=== PATIENT | female | born 1965 | race Two or more races ===

== ENCOUNTER 2017-01-21 11:12 | Observation (INO) | payer BC ==
[~2017-01-21] VITALS: Ht 160 cm; Wt 107.3 kg
--- NOTE | ~2017-01-21 | HP ---
PATIENT'S NAME: PARDEEP MATIAS [facility] AGE: 51 Y [address] ROOM: [address] [address] LOCATION: GPCU ADMIT DATE: 01/21/2017 History & Physical DISCHARGE DATE: FAMILY PHYSICIAN: MICAELA ROSE MD ATTENDING PHYSICIAN: MICAELA ROSE DATE OF SERVICE: 01/21/2017 CHIEF COMPLAINT: Cholelithiasis and abdominal pain. HISTORY OF PRESENT ILLNESS: The patient is a 51-year-old female, who has been in her usual state of good health when she woke up this morning, then late this morning she had an abrupt onset of quite intense severe midepigastric pain. It started in the upper midepigastrium to lower chest area. It seemed to radiate up under her left breast area, but also into her right back. The pain was quite intense and constant in nature. It was not associated with any heart palpitations. No shortness of breath or cough. No nausea or vomiting. She came into the emergency room to be evaluated. Here, she was found to be afebrile. Her white count was normal. Her CK-MB was slightly elevated at 6.8. She also had a slight elevation of her AST at 61. Amylase and lipase were normal. An ultrasound revealed some stones in the gallbladder, but no signs of cholecystitis and no duct dilatation. The patient initially seemed to be quite uncomfortable and required several doses of IV narcotics. Right now, she is feeling much better and feels like the pain is almost gone. Her bowels have been working normally. She did have an episode similar to this in August. At that time, she responded to a GI cocktail and had not had any troubles until today. The GI cocktail did not help today. PAST MEDICAL HISTORY: Really unremarkable. MEDICATIONS: She takes no medications on a regular basis. ALLERGIES: HER ONLY ALLERGY IS CODEINE, WHICH CAUSED A RASH. PAST SURGICAL HISTORY: Tonsillectomy, 3 C-sections, and I did remove her appendix during one of her C- sections. SOCIAL HISTORY: The patient is . She denies tobacco or alcohol abuse. No illegal drug PATIENT'S NAME: PARDEEP MATIAS [facility] AGE: 51 Y [address] ROOM: [address] [address] [facility] ADMIT DATE: 01/21/2017 History & Physical DISCHARGE DATE: FAMILY PHYSICIAN: MICAELA ROSE MD ATTENDING PHYSICIAN: MICAELA ROSE use. REVIEW OF SYSTEMS: Otherwise unremarkable other than the pain. FAMILY HISTORY: Noncontributory. PHYSICAL EXAMINATION: GENERAL: The patient is a healthy, well-nourished, 51-year-old female, she is alert and oriented, she does not appear to be in any discomfort or obvious distress. VITAL SIGNS: Temperature 97.7, pulse 74, respirations 16, blood pressure 180/82, and saturations are 97%. Weight is 105.4 kg. HEENT: Normocephalic and atraumatic. Pupils are equal. There is no scleral icterus. External ears, nose, and eyelids are unremarkable. NECK: There is no masses or adenopathy. Trachea is midline. Breathing is nonlabored. LUNGS: Clear to auscultation without rales, rhonchi, or wheezing. HEART: Regular rate and rhythm. ABDOMEN: Soft. It is not distended. I really did not appreciate any tenderness on my exam. She has normoactive bowel sounds. EXTREMITIES: No deformities. She moves all 4 extremities well. There is no cyanosis, clubbing, or edema. ASSESSMENT: This is a 51-year-old female with cholelithiasis, but no evidence of cholecystitis at this point. Her attack of pain may be gallbladder in origin, but it is difficult to know for sure. We discussed the possibility of cholecystectomy versus ongoing observation, I think either is quite reasonable. I suspect she will need her gallbladder out at some point, but I do not see anything urgent right now. PLAN: The patient is being admitted by Dr. Rose for observation. If she likes to go ahead with cholecystectomy, we can certainly take care of this, otherwise she could continue with observation and see how things go. MD FRANSISCO JANE/silas PATIENT'S NAME: JOSHUA MATIASMARIBEL Hardin [facility] AGE: 51 Y [address] ROOM: [address] [address] LOCATION: [facility] ADMIT DATE: 01/21/2017 History & Physical DISCHARGE DATE: FAMILY PHYSICIAN: MICAELA ROSE MD ATTENDING PHYSICIAN: MICAELA ROSE /[id number] CC: Micaela Rose MD D: [id number] T: [id number] HISTORY & PHYSICAL
--- NOTE | ~2017-01-21 | DS ---
PATIENT'S NAME: PARDEEP MATIAS [facility] AGE: 51 Y [address] ROOM: [address] [place], [place] [address] LOCATION: GPCU ADMIT DATE: 01/21/2017 Discharge Summary DISCHARGE DATE: 01/24/2017 FAMILY PHYSICIAN: Micaela Rose MD ATTENDING PHYSICIAN: Micaela Rose FINAL DIAGNOSES: 1. Acute epigastric pain secondary to biliary colic secondary to gallstones. 2. Abdominal pain, epigastric, secondary possibly to duodenal ulcer, confirmed by upper GI endoscopy. 3. Status post laparoscopic cholecystectomy, Dr. Whitney, 01/23/2017, see op note. 4. Status post upper GI endoscopy per Dr. Carrillo, 01/22/2017, see op note. 5. Exogenous obesity. HOSPITAL COURSE: This 51-year-old female was admitted to the hospital with acute epigastric pain. She was seen in consultation at my request by Dr. Shashi Whitney, surgeon, and Dr. Carrillo, applications engineering manager. Please see their notes and dictation in the chart. The patient's pain was felt to be from biliary colic, but to make sure there is no other cause of her pain, she underwent an upper GI endoscopy that showed a duodenal ulcer. We let the gas defervesce out of her bowels, and the day prior to dismissal, she was taken to the operating room with Dr. Shashi Whitney and underwent an uncomplicated laparoscopic cholecystectomy. She is in good condition, tolerating diet well, ambulating without symptoms, afebrile, and is dismissed to home on 01/24/2017. She goes home on the med list shown, diet as tolerated. She has been given instructions to see me back in a week and Dr. Whitney back as he desires per chart. If she has fever, chills, nausea, vomiting, or blood in the stool, she is to be seen back earlier. She understands. MICAELA ROSE MD [employer]/jennil /[id number] d: 01/24/171952 t: 01/31/17 1033, DISCHARGE SUMMARY
--- NOTE | ~2017-01-21 | HP ---
PATIENT'S NAME: PARDEEP MATIAS [facility] AGE: 51 Y [address] ROOM: [id number] [place], [place] [address] LOCATION: GPCU ADMIT DATE: 01/21/2017 History & Physical DISCHARGE DATE: FAMILY PHYSICIAN: MICAELA STEVENS MD ATTENDING PHYSICIAN: MICAELA STEVENS DATE OF SERVICE: CHIEF COMPLAINT: Epigastric pain. HISTORY OF PRESENT ILLNESS: The patient is a 51-year-old female from [place], [place], who presented to my office early in the afternoon on the day of admission complaining of an acute onset of severe epigastric pain. She had a couple spells like this in the past and ended up in the emergency room one other time. I sent her to [facility] Emergency Room, where she was seen by Dr. Aimee Cooper. Her CPK was up a little bit, which bothered her and taken to the hospital and also the fact that her epigastric pain required IV narcotics to calm it down. Her lab frankly looks normal; lab including CBC, chem panel, amylase, and lipase, specifically her troponin is negative. Her EKG did not show any acute changes. Her urine is clear also. However, her ultrasound of the gallbladder shows what appears to be sludge and small stones in the gallbladder without any other complicating feature. Her chest x-ray is normal. I had a long talk with her and her when I see them after admission at 5:40 p.m. on the day of admission. I really think she needs to stay overnight to control her pain and make sure she never relapse; I will put her on an IV PPI. I have obtained surgical consultation, and by the time I see the patient after admission, she has been seen by Dr. Sreedhar Whitney, general surgeon. Please see his notes on the chart. He has offered the patient and her opportunity for a cholecystectomy in the morning, laparoscopic, if they want to proceed. In order to clear the air, I have obtained an upper GI endoscopy request for tomorrow morning and will keep the patient n.p.o. for that. I think that will help us answer whether any other possibility is present, which could be causing her severe epigastric pain such as severe esophagitis or other complicating feature in the upper GI tract. The patient and her wished to proceed with that workup. In that light, we will leave her IV in control her pain and keep her n.p.o. after midnight. PATIENT'S NAME: PARDEEP MATIAS [facility] AGE: 51 Y [address] ROOM: [address] [address] [facility] ADMIT DATE: 01/21/2017 History & Physical DISCHARGE DATE: FAMILY PHYSICIAN: MICAELA STEVENS MD ATTENDING PHYSICIAN: MICAELA STEVENS MEDICINES: Per nurse's notes. Vitamins . ALLERGIES: SEE NURSE'S NOTES. OPERATIONS: See old records. SOCIAL HISTORY: Does not smoke cigarettes. FAMILY HISTORY: Negative for problems with bleeding disorder or general anesthesia. REVIEW OF SYSTEMS: HEENT: She has had no recent headache, sore throat, or earache. ENDOCRINE: She is not diabetic nor does she have thyroid disease. LUNGS: No history of asthma. HEART: No history of chest pain or palpitations or previous OH or hypertension. GI: No vomiting. Is nauseated. Has epigastric pain. No recent blood in the stool. No weight loss. No schuyler dysphagia. : No dysuria or frequency. No blood in the urine. EXTREMITIES: No joint swelling. No edema. NEUROLOGIC: She has never had a stroke, never had a seizure. SKIN: No recent rashes. MENTAL STATUS: No recent history of depression or anxiety. PHYSICAL EXAMINATION: GENERAL: Moderately obese female, in no apparent distress when I see her after IV pain medicine. She is oriented to person, place, and time, and I believe to be confident pre-narcotic. HEENT: Shows pupils react to light. TMs are not visualized. Posterior pharynx is clear. Mucous members are moist. NECK: Unremarkable. Thyroid is not enlarged. LUNGS: Clear without wheeze or rub. HEART: Shows no murmur, gallop, or rub. ABDOMEN: When I see her, she is not tender in the belly. There is no palpable mass. PELVIC AND RECTAL: Not done. EXTREMITIES: Pulses full throughout. NEUROLOGIC: Grossly intact without lateralizing signs. IMPRESSION: PATIENT'S NAME: PARDEEP MATIAS [facility] AGE: 51 Y [address] ROOM: [address] [place], [place] [address] [facility] AD[facility] DATE: 01/21/2017 History & Physical DISCHARGE DATE: FAMILY PHYSICIAN: MICAELA STEVENS MD ATTENDING PHYSICIAN: MICAELA STEVENS 1. Severe epigastric pain. 2. Ultrasound of the gallbladder showing small stones in the gallbladder/sludge with no complicating feature. 3. Exogenous obesity. PLAN: As above. MICAELA STEVENS MD CLAIMS AGENT RIGHT OF WAY/modl /[id number] D: [id number] T: [id number] HISTORY & PHYSICAL
--- NOTE | ~2017-01-21 | ER ---
PATIENT'S NAME: PARDEEP MATIAS [facility] AGE: 51 Y [address] ROOM: [address] [place] [id number] LOCATION: GPCU ADMIT DATE: 01/21/2017 ER/Outpatient Report DISCHARGE DATE: FAMILY PHYSICIAN: MICAELA ROSE MD ATTENDING PHYSICIAN: MICAELA ROSE Time of Arrival: 1112 hours. Time of Evaluation: 1125 hours. IDENTIFICATION: A 51-year-old female. CHIEF COMPLAINT: Abdominal pain. HISTORY OF PRESENT ILLNESS: Approximately 1 hour prior to arrival, the patient was at [facility] and developed severe epigastric abdominal discomfort. No radiation of the pain. She has no associated nausea or vomiting. No shortness of breath. No chest pain. No fever or chills. She had similar episode of pain she thought a few months ago and indeed she was here on August 30 with epigastric abdominal pain relieved with a GI cocktail. The patient has had no pain in between August 30 and today. She really only had crackers to eat this morning. She has had no constipation or diarrhea. Her last bowel movement was just prior to arrival. No blood in her stools. No dark, tarry, or black stools. No dysuria. She is no longer having periods. ALLERGIES: CODEINE, SHE SAYS IT CAUSES A RASH. CURRENT MEDICATIONS: Denies. MEDICAL PROBLEMS: Denies. PRIOR SURGERIES: section x3, tonsillectomy, and appendectomy. SOCIAL HISTORY: The patient is . Does not work outside the home. Lives here in [place]. Tobacco use, denies. Alcohol use, denies. Drug use, denies. REVIEW OF SYSTEMS: All systems reviewed and negative other than what is noted in the HPI. PATIENT'S NAME: PARDEEP MATIAS [facility] AGE: 51 Y [address] ROOM: [facility] [place], [place] [address] LOCATION: GPCU ADMIT DATE: 01/21/2017 ER/Outpatient Report DISCHARGE DATE: FAMILY PHYSICIAN: MICAELA ROSE MD ATTENDING PHYSICIAN: MICAELA ROSE FAMILY HISTORY: Father with premature coronary artery disease and stroke. PHYSICAL EXAMINATION: VITAL SIGNS: Height 5 feet and 3 inches, weight 105.4 kg, blood pressure 180/82, pulse 74, respirations 16, temperature 97.7, and saturations 97% on room air. GENERAL: A 51-year-old female, in obvious distress with 9/10 pain. HEENT: Head: Normocephalic and atraumatic. Ears: TMs translucent both ears. Eyes: Pupils equal and reactive to light and accommodation. Extraocular movements intact. Nose: Mucosa pink. No lesions. Mouth: No lesions. Pharynx benign. NECK: Supple. No lymphadenopathy. No nuchal rigidity. LUNGS: Clear to auscultation. Breath sounds are equal. No rhonchi, wheezes, or rales. HEART: Regular rate and rhythm. No murmur, rub, or gallop. ABDOMEN: Bowel sounds present. Soft. Nondistended. No hepatosplenomegaly. No palpable masses. Tender to palpation in the epigastric region. No rebound or guarding. No right upper quadrant tenderness. No CVA tenderness. No chest wall tenderness. EMERGENCY DEPARTMENT COURSE: An IV was initiated. GI cocktail was given. The patient did not initially want any other pain medication. EKG and labs were obtained. EKG done at 1148 hours, showed normal sinus rhythm at 72 beats per minute, no acute ST elevation or depression, and no change when compared to previous EKG dated August 30, 2016. She has poor anterior R-wave progression and Q-wave in lead III, again present on prior EKG. Repeat EKG at 1256 hours, showed normal sinus rhythm at 69 beats per minute, no acute ST elevation or depression, poor anterior R-wave progression and a Q-wave in lead III, again unchanged from previous EKGs. Sodium 141, potassium 4.1, chloride 105, CO2 of 26, BUN 14, creatinine 0.9, and blood sugar 114. Liver enzymes: AST 61, which is slightly elevated when compared to previous AST in August; ALT 45, bilirubin normal at 0.5. Amylase 60. Lipase 199. Hemoglobin 15.3, hematocrit 46.3, platelets 237, and white count 6.6 with a normal differential. Urine hCG negative. UA; specific gravity 1.015, pH 6, leukocytes trace, nitrites negative, trace of protein, rare white cells, 0 to 2 red cells, rare epithelial cells. CPK 171, CK-MB elevated at 6.8, and troponin I less than 0.040. A 90-minute cardiac enzymes: CPK 163, CK-MB 6.1, and troponin I less than 0.040. Chest x-ray, one view, no acute process, pending Radiology over- read. Right upper quadrant ultrasound shows cholelithiasis without ductal dilatation, the gallbladder shows a number of small gallstones that are gravel like in size, no gallbladder wall thickening, 5 mm common bile duct per Radiology. The patient was continued to have 9/10 pain despite the GI PATIENT'S NAME: PARDEEP MATIAS [facility] AGE: 51 Y [address] ROOM: [address] [address] LOCATION: GPCU ADMIT DATE: 01/21/2017 ER/Outpatient Report DISCHARGE DATE: FAMILY PHYSICIAN: MICAELA ROSE MD ATTENDING PHYSICIAN: MICAELA ROSE cocktail, so she was given fentanyl a total of 50 mcg and Zofran 4 mg again with no improvement. She continued to have significant pain. She was given Dilaudid 0.5 mg IV with complete resolution of her pain. Her blood pressure also improved from 180/82 to 120s systolic and she was much more comfortable. IMPRESSION AND PLAN: 1. Epigastric abdominal pain. The patient was given GI cocktail, fentanyl, Dilaudid, and 40 mg of IV Protonix. Pain improved to 0. Differential diagnosis includes cholelithiasis, peptic ulcer disease, cardiac etiology, esophageal spasm. 2. Elevated CPK-MB. No acute findings noted on EKG. Second set of enzymes with CK-MB is still slightly elevated, but improved from the first, troponin remains normal. The patient will be admitted by Dr. Rose and have serial EKG and enzymes with any necessary cardiology consultation. 3. Cholelithiasis. Dr. Rose will admit. Dr. Whitney provided consultation and evaluated the patient in the emergency room. All of the differential diagnosis was explained to the patient and her in detail and all questions have been answered, and again the patient was taken to the floor in stable and improved condition. KARYN PINTO MD CAR/modl /[id number] d: 01/21/17 2324 t: 01/26/17 0653, OUTPATIENT REPORT
--- NOTE | ~2017-01-21 | OR ---
PATIENT'S NAME: PARDEEP MATIAS [facility] AGE: 51 Y [address] ROOM: [address] [address] LOCATION: GPCU ADMIT DATE: 01/21/2017 OR/Procedure Report DISCHARGE DATE: FAMILY PHYSICIAN: MICAELA ROSE MD ATTENDING PHYSICIAN: MICAELA ROSE SURGEON: Charles Whitney MD HEAD LOADER: DATE OF PROCEDURE: 01/23/2017 PREOPERATIVE DIAGNOSIS: Cholelithiasis. POSTOPERATIVE DIAGNOSIS: Cholelithiasis with mild chronic cholecystitis. PROCEDURE PERFORMED: Laparoscopic cholecystectomy. ANESTHESIA: General. SPECIMEN: Gallbladder. REASON FOR PROCEDURE: The patient is a 51-year-old female, who was admitted with severe midepigastric pain. She underwent an upper endoscopy yesterday that showed duodenal ulcers. She had an ultrasound showing cholelithiasis. She had a minimal elevation of her AST. After discussing risks and benefits of surgery versus ongoing observation, she elected to proceed with cholecystectomy. FINDINGS: The patient had a normal-sized cystic duct. She did have some very minimal gallbladder wall thickening. She had considerable fatty infiltration of the liver. PROCEDURE IN DETAIL: The patient was taken to the operating suite and placed in the supine position. After general endotracheal anesthesia was obtained, the abdomen was prepped with ChloraPrep and sterilely draped. Marcaine was infiltrated into the incision sites. A 2 cm transverse infraumbilical incision was made. The fascia was grasped and elevated and a Veress needle was used to obtain a pneumoperitoneum. An 11 mm trocar was then passed across the abdominal wall. Three 5 mm subcostal trocars were all placed under direct visualization. The patient had a quite generous omentum as well as significant fatty infiltration of the liver. The fundus of the gallbladder was grasped and elevated. A second grasper was placed on the infundibulum. We had to place the patient in reverse Trendelenburg to expose the neck area. We were then able to dissect through the neck area. The cystic duct was stapled proximally and distally and divided with scissors. The cystic artery was stapled and divided with cautery. The gallbladder was then mobilized free of the liver bed. Once fully mobilized, the gallbladder was placed in an endo- PATIENT'S NAME: PARDEEP MATIAS [facility] AGE: 51 Y [address] ROOM: [address] [address] LOCATION: GPCU ADMIT DATE: 01/21/2017 OR/Procedure Report DISCHARGE DATE: FAMILY PHYSICIAN: MICAELA ROSE MD ATTENDING PHYSICIAN: MICAELA ROSE retrieval bag and brought out through the umbilicus. We then washed out the right upper quadrant. All irrigation was removed. There were no signs of any ongoing bleeding or bile leak. The surgical clips were in place. There were some omental adhesions around the umbilicus that we took down with blunt dissection and cautery. We then used a Vicryl suture to close the fascia at the umbilicus. The trocars were all withdrawn and the pneumoperitoneum was evacuated. The skin incisions were closed with subcuticular Monocryl. Benzoin, Steri-Strips, and gauze dressings were applied. POSTPROCEDURE PLAN: The patient will be sent to recovery and back to the floor when stable. We will gradually advance her diet as tolerated. She will receive pain medicines as necessary. CHARLES WHITNEY MD JTM/modl /[id number] CC: Micaela Rose MD d: 01/23/17 1541 t: 01/31/17 1016, OPERATIVE SUMMARY
--- NOTE | ~2017-01-21 | CON ---
PATIENT'S NAME: PARDEEP MATIAS [facility] AGE: 51 Y [address] ROOM: [place] [address] LOCATION: GPCU ADMIT DATE: 01/21/2017 Consultation DISCHARGE DATE: FAMILY PHYSICIAN: MICAELA ROSE MD ATTENDING PHYSICIAN: MICAELA ROSE DATE OF CONSULTATION: 01/21/2017 REFERRING PHYSICIAN: Micaela Rose MD INPATIENT CONSULTATION NOTE CONSULTING PHYSICIAN: Tereso Carrillo M.D. REASON FOR CONSULTATION: Abdominal pain. HISTORY OF PRESENT ILLNESS: The patient is a very pleasant, 51-year-old white female, who was admitted today with acute onset of abdominal pain. She developed acute epigastric pain at about 11:00 a.m. The pain was associated with some nausea, but she did not vomit. She had no fever or chills. The pain did radiate somewhat to the back and was pressure-like. She subsequently did receive analgesia in the ER as well as here. Currently, she has almost completely relieved the pain. She states a similar episode happened in August of last year. This lasted a few hours. We have been consulted for further evaluation in order to rule out any other etiology of the abdominal pain. PAST MEDICAL HISTORY: ALLERGIES: TO CODEINE. HOME MEDICATIONS: Only include multivitamins. PAST SURGICAL HISTORY: Consists of appendectomy, tonsillectomy, and adenoidectomy as well as section. PSYCHOSOCIAL HISTORY: She takes occasional alcohol. No history of alcoholism per se. No history of drug use. FAMILY HISTORY: PATIENT'S NAME: PARDEEP MATIAS [facility] AGE: 51 Y [address] ROOM: [place] [address] LOCATION: GPCU ADMIT DATE: 01/21/2017 Consultation DISCHARGE DATE: FAMILY PHYSICIAN: MICAELA ROSE MD ATTENDING PHYSICIAN: MICAELA ROSE There is a family history of heart disease in her father. There is no history of cancer in the family. REVIEW OF SYSTEMS: A detailed 10-point review of systems was done. It was found to be negative other than those mentioned in the history of present illness and past medical history. PHYSICAL EXAMINATION: GENERAL: Today, she is alert and awake, appears to be in no acute distress right now. VITAL SIGNS: Her pulse is 74 per minute, heart rate is 16 per minute, and blood pressure is 135/65. HEENT: Reveals no pallor, no icterus. Head and ENT: Oral cavity is normal. Nasal passages are clear. NECK: No masses are felt. No thyromegaly is felt. CARDIOVASCULAR: S1 and S2. Peripheral pulses are palpable and normal. No carotid bruits are heard. CHEST: Clear to auscultation bilaterally. No wheezing. No rhonchi. ABDOMEN: Soft. There is mild epigastric tenderness. No rigidity, guarding, or rebound. LABORATORY DATA: Her labs done in the ER show a CK-MB high of 6.1, but troponin I is less than 0.040. Her sodium is 141, potassium 4.1, chloride is 105, bicarb is 26, BUN is 14, creatinine 0.9, total bilirubin 0.5, ALT of 45, AST of 61, alkaline phosphatase is 55. Her amylase is 60 and lipase is 199. WBC 6.6, hemoglobin 15.3, hematocrit 46.3, platelet count is 270. Urine is negative for hCG. UA is negative. Ultrasound of the abdomen done today showed gallbladder with multiple stones, no gallbladder wall thickening, no ductal dilatation. Chest x-ray was done, this was unremarkable. IMPRESSION: The patient with gallstones, presenting with acute abdominal pain. She does seem to have responded somewhat to the analgesia and other medications. I discussed this in detail with Dr. Rose. He has already discussed this with Dr. Whitney. They are of the opinion that we should be ruling out an upper GI pathology prior to proceeding with a cholecystectomy. In view of this, I will be scheduling her for an upper endoscopy for tomorrow morning. In the meanwhile, we will continue with the PPI. The procedure of upper endoscopy was explained in detail to the patient. All risks including, but not limited to, bleeding, perforation, possible risk of anesthesia as well as urgent need for surgery arising from a complication was also explained. Informed consent was then obtained. PATIENT'S NAME: PARDEEP MATIAS [facility] AGE: 51 Y [address] ROOM: [place] [address] LOCATION: GPCU ADMIT DATE: 01/21/2017 Consultation DISCHARGE DATE: FAMILY PHYSICIAN: MICAELA ROSE MD ATTENDING PHYSICIAN: MICAELA ROSE Thank you once again for the courtesy of this consultation. MD DONNA HANSEN/modl /[id number] d: 01/22/17 0114 t: 01/22/17 1712, CONSULTATION REPORT
[2017-01-21 11:49] LABS: BASOPHIL # 0.1 K/uL (0.0-0.2); BASOPHIL % 0.8 %; EOSINOPHIL # 0.4 K/uL (0.0-0.5); EOSINOPHIL % 6.3 %; HEMATOCRIT 46.3 % (33.0-46.0); HEMOGLOBIN 15.3 g/dL (10.0-15.0); IMMATURE GRANULOCYTE % 0.2 %; LYMPHOCYTE # 2.3 K/uL (0.8-4.0); LYMPHOCYTE % 35.1 %; MCV 84.8 fl (83.0-98.0); MONOCYTE # 0.5 K/uL (0.0-1.0); MONOCYTE % 7.5 %; MPV 9.1 fl (9.4-12.4); NEUTROPHIL # (ANC) 3.3 K/uL (1.8-7.8); NEUTROPHIL % 50.1 %; NRBC % 0 /100WBC (0-0.00); PLATELET COUNT 237 K/uL (150-450); RBC 5.46 M/uL (3.50-5.50); RDW-CV 12.7 % (11.9-14.6); WBC 6.6 K/uL (4.0-11.0)
[2017-01-21 11:58] LABS: BILIRUBIN URINE NEGATIVE (NEGATIVE); BLOOD URINE 10 /UL (NEGATIVE); COLOR URINE AMBER (YELLOW); GLUCOSE URINE NEGATIVE (NEGATIVE); KETONE URINE 5 mg/dL (NEGATIVE); LEUKOCYTES URINE 25 /UL (NEGATIVE); NITRITE URINE NEGATIVE (NEGATIVE); PROTEIN URINE 30 mg/dL (NEGATIVE); SPEC GRAVITY URINE 1.015 (1.003-1.035); TURBIDITY URINE CLEAR (CLEAR); UROBILINOGEN URINE 1 mg/dL (NORMAL)
[2017-01-21 12:05] LABS: BACTERIA URINE NEGATIVE (NEGATIVE); EPITHELIAL URINE RARE #/HPF (NEGATIVE); MUCUS URINE 2+ (NEGATIVE); RBC URINE 0-2 #/HPF (NEGATIVE); WBC URINE RARE #/HPF (NEGATIVE)
[2017-01-21 12:08] LABS: ALBUMIN 3.6 gm/dL (3.5-5.0); ALK PHOS 55 IU/L (33-138); ALT 45 IU/L (12-78); ANION GAP 14.1 (10.0-19.0); AST 61 IU/L (10-40); BLOOD UREA NITROGEN 14 mg/dL (6-24); CALCIUM 8.7 mg/dL (8.5-10.5); CHLORIDE 105 mMol/L (96-110); CO2 26 mMol/L (22-32); CREATININE 0.9 mg/dL (0.5-1.1); ESTIMATED GFR (MDRD EQUATION) > 60; POTASSIUM 4.1 mMol/L (3.7-5.1); SODIUM 141 mMol/L (135-145); TOTAL BILIRUBIN 0.5 mg/dL (0.0-1.5); TOTAL PROTEIN 8.2 g/dL (6.0-8.4)
[2017-01-21 12:15] LABS: CPK 171 IU/L (21-215)
[2017-01-21 13:54] LABS: CPK 163 IU/L (21-215)
[2017-01-21] MEDS ORDERED: HAIR SKIN NAIL1 EACH PO (15:59)
--- NOTE | 2017-01-21 17:07 | NUR ---
Significant Event:Was shopping at [employer] today and began feeling a pressure feeling in mid epigastric region that (she had visited the ER in August for then same pressure) was rated a "10". Having a bowel movment did not help, so she came the ER and the pain radiated to the left chest under her breast. IN the ER she received GI Cocktail, Zofran, Fentanyl x 2, and last was Dilaudid 0.5 mg IV at 1254 and IV Protonix. EKG done x 2 and was NSR. Arrived to the floor by wheelchair and is up ad yuliya. Has some gall stones, but nothing needing removal right now. Dr Whitney saw patient in ER and told her to think about possible lap praveen and would see her in the morning. Follow up:
--- NOTE | 2017-01-21 17:46 | NUR ---
Significant Event:A/O X 3. Ambulates in room ad yuliya. NSR. SBP 130's since arriving to the floor. HR in 80's. NPO. NO pain. Last pain med in ER was 0.5 mg Dilaudid @ 1254 with IV Protonix. IVF at 125 ml/h in L) hand 20 gauge IV. and son in law are supportive at the bedside. Follow up:Upper GI in AM, if abnormal possible lap praveen.
--- NOTE | 2017-01-22 04:52 | NUR ---
Patient A/Ox3. VSS on RA. Lungs clear. Bowel sounds present. IV NS at 125ml/hr. No complaints. Independent in room. Npo for EGD this am.
--- NOTE | 2017-01-22 09:03 | NUR ---
denies nausea or discomfort, reports feeling dizzy. rest encouraged
--- NOTE | 2017-01-22 11:18 | NUR ---
Pt on the phone. I did speak with nursing and she does not anticipate any discharge needs.
--- NOTE | 2017-01-22 17:51 | NUR ---
Significant Event: A/O x3, cooperative with cares. VSS, SBPs 120-160s, HRs 50-60s, on room air. No c/o pain. EGD today; duodenal ulcer et biopsies x2 taken. Dr. Whitney up to see patient. Scheduled for a lap-praveen at 0830 in the AM, OR will call for at 0700; consents are signed et patient et family are aware of time. Up ad yuliya in room; ambulate hallway Follow up: NPO after midnight; possible d/c tomorrow afternoon after procedure
[2017-01-23 04:31] LABS: BASOPHIL % 0.8 %; EOSINOPHIL # 0.4 K/uL (0.0-0.5); HEMOGLOBIN 13.4 g/dL (10.0-15.0); IMMATURE GRANULOCYTE % 0.2 %; LYMPHOCYTE # 1.8 K/uL (0.8-4.0); LYMPHOCYTE % 34.2 %; MCH 28.2 pg (27.0-34.0); MCHC 33.5 gm/dL (32.0-36.5); MCV 84.2 fl (83.0-98.0); MONOCYTE # 0.4 K/uL (0.0-1.0); MONOCYTE % 7.6 %; MPV 9.1 fl (9.4-12.4); NEUTROPHIL # (ANC) 2.5 K/uL (1.8-7.8); NEUTROPHIL % 49.2 %; NRBC % 0 /100WBC (0-0.00); PLATELET COUNT 226 K/uL (150-450); RBC 4.75 M/uL (3.50-5.50); RDW-CV 12.6 % (11.9-14.6); WBC 5.1 K/uL (4.0-11.0)
[2017-01-23 04:53] LABS: ALBUMIN 3.1 gm/dL (3.5-5.0); ALK PHOS 51 IU/L (33-138); ALT 58 IU/L (12-78); BLOOD UREA NITROGEN 7 mg/dL (6-24); CHLORIDE 109 mMol/L (96-110); CO2 26 mMol/L (22-32); CREATININE 0.8 mg/dL (0.5-1.1); ESTIMATED GFR (MDRD EQUATION) > 60; SODIUM 143 mMol/L (135-145); TOTAL BILIRUBIN 0.4 mg/dL (0.0-1.5); TOTAL PROTEIN 7.3 g/dL (6.0-8.4)
[2017-01-23 04:56] LABS: ANION GAP 11.9 (10.0-19.0); AST 60 IU/L (10-40); POTASSIUM 3.9 mMol/L (3.7-5.1)
--- NOTE | 2017-01-23 05:35 | NUR ---
SAE Eagle/SHAYAN. VSS ON RA. NO COMPLAINTS. NPO FOR SURGERY THIS AM. LUNGS CLEAR. BOWEL SOUNDS PRESENT. NS AT 125ML/HR. INDEPENDENT IN ROOM. NO COMPLAINTS. HOME TODAY AFTER SURGERY.
--- NOTE | 2017-01-23 17:24 | NUR ---
Significant Event: A/O x3, cooperative with cares. VSS, SBPs 100-140s, HRs 60-70s, oxygen at 1.5 liters. Had pain issues upon arrival to the floor; did recieve 2 tabs of Esbon in PACU. Since arriving to the floor she has had 2 tabs of Esbon et 60 mg of IV toradol; pain is more manageable. Lap sites x4 to abd; dressing intact. Dressing to R) lateral abd et mid abd have a scant amount of drainage present. Up to bathroom with assist of 1; ambulate ortiz x3 with assist of 1 Follow up:? d/c tomorrow
--- NOTE | 2017-01-24 04:57 | NUR ---
Significant Event: A/O x3. Afebrile. C/O pain in abd region, gave 2 tab norco at bedtime. VSS on RA. SBP 130-150s. Bowel sounds normoactive. Pt ambulated in ortiz x2, tolerated well. Lap praveen site dressings d/i. No additional drainage. Rested well throughout night. Follow up: Possible discharge today.
[2017-01-24] MEDS ORDERED: PROTONIX40 MG PO (10:56)
[2017-01-24] MEDS ORDERED: NORCO 5-325 TA1 EACH PO (10:58)
--- NOTE | 2017-01-24 12:43 | NUR ---
Significant Event: A/O x3, cooperative with cares. VSS, SBPs 110-140s, HRs 60s, on room air. 2 tabs of [place] given for c/o abd pain; relief noted. Up in room ad yuliya; ambulate halls. Dismissal instructions given to patient et , verbalized understanding. Dismissed to front lobby per w/c accompanied by nursing consultant. Follow up:
== END 2017-01-24 11:30 | disposition disaster alternative care site (69) ==
LOC: GMED 11:12 → GPCU 14:12
PROVIDERS: Family Medicine; Surgery; ADMIT Family Medicine
PROC: 0DB68ZX Excision of Stomach, Via Natural or Artificial Opening Endoscopic, Diagnostic (ICD-10-PCS; 2017-01-22)
PROC: 0FT44ZZ Resection of Gallbladder, Percutaneous Endoscopic Approach (ICD-10-PCS; principal; 2017-01-23)
DX: K29.50 Unspecified chronic gastritis without bleeding (principal); K26.9 Duodenal ulcer, unspecified as acute or chronic, without hemorrhage or perforation; E66.09 Other obesity due to excess calories; Z88.5 Allergy status to narcotic agent; Z90.49 Acquired absence of other specified parts of digestive tract; Z90.89 Acquired absence of other organs; Z98.890 Other specified postprocedural states
CPT/HCPCS: C9113; G0378; J0694; J1170; J1885; J2405; J3010; J7030